=== PATIENT | female | born 1975 | race Caucasian/White ===

== ENCOUNTER 2019-04-06 08:17 | Day surgery (SDC) | payer OTHER ==
[2019-04-06] VITALS (15 sets, daily range): BP systolic 114–148; BP diastolic 48–74; PULSE 64–78; RESP 13–22; Ht 160 cm; Wt 73.3 kg
[~2019-04-06] VITALS: Ht 160 cm; Wt 73.3 kg
[~2019-04-06 08:17] MED LIST: CEPH500C PO; HYDR-3601 NGT; SOD CHLORIDE 0.9% 1,000 ML IV ONE
[2019-04-06] MEDS ORDERED: NEOSTIGMINE 3 MG/3 ML SYRINGE ONE (09:21)
[2019-04-06] MEDS ORDERED: FENTAnyl 50 MCG/ML VIAL ONE (09:21)
[2019-04-06] MEDS ORDERED: CEFAZOLIN 1 GM INJ ONE (09:21)
[2019-04-06] MEDS ORDERED: LIDOCAINE 2% (SDV) 5 ML INJ ONE (09:21)
[2019-04-06] MEDS ORDERED: GLYCOPYRROLATE 0.4 MG INJ ONE (09:21)
[2019-04-06] MEDS ORDERED: PROPOFOL 20 ML ONE (09:21)
[2019-04-06] MEDS ORDERED: MIDAZOLAM 1 MG/ML 2 ML INJ ONE (09:21)
[2019-04-06] MEDS ORDERED: BUPIVACAINE LIPOSOME/PF 266 MG/20 ML VIAL INFIL SCH (09:30)
[2019-04-06] MEDS ORDERED: POLYMYXIN/BACITRACIN 1L IRRIG ONE (10:17)
[2019-04-06] MEDS ORDERED: ONDANSETRON 4 MG INJ ONE (10:23)
[2019-04-06] MEDS ORDERED: DEXAMETHASONE 4 MG/ML 5 ML INJ ONE (10:23)
[2019-04-06] MEDS ORDERED: BUPIVACAINE 0.25% (MPF) 10 ML 10 ML VIAL INJ ONE (10:43)
[2019-04-06] MEDS ORDERED: ALBUTEROL 0.083% (NEB) 2.5 MG/3 ML AMP HHN PRN (11:00)
[2019-04-06] MEDS ORDERED: EPHEDrine 25 MG/5 ML SYG IV PRN (11:00)
[2019-04-06] MEDS ORDERED: TRIMETHOBENZAMIDE 100 MG/ML VIAL IM PRN (11:00)
[2019-04-06] MEDS ORDERED: HYDROmorphONE 1 MG/5 ML IV SYRINGE IV PRN ×3 (11:00)
[2019-04-06] MEDS ORDERED: hydrALAzine 20 MG INJ IV PRN (11:00)
[2019-04-06] MEDS ORDERED: DIPHENHYDRAMINE 50 MG INJ IV PRN (11:00)
[2019-04-06] MEDS ORDERED: ONDANSETRON 4 MG INJ IV PRN ×2 (11:00→12:00)
[2019-04-06] MEDS ORDERED: MEPERIDINE 25 MG INJ IV PRN (11:00)
[2019-04-06] MEDS ORDERED: MIDAZOLAM 1 MG/ML 2 ML INJ IV PRN (11:00)
[2019-04-06] MEDS ORDERED: OXYCODONE/ACETAMINOPHEN (5/325) TAB PO PRN ×2 (11:00)
[2019-04-06] MEDS ORDERED: LABETALOL HCL 20MG INJ IV PRN (11:00)
[2019-04-06] MEDS ORDERED: FENTAnyl 50 MCG/ML VIAL IV PRN ×2 (11:00)
[2019-04-06] MEDS ORDERED: IPRATROPIUM (NEB) 0.5 MG/2.5 ML AMP HHN PRN (11:00)
[2019-04-06] MEDS ORDERED: LACTATED RINGER'S 1,000 ML IV SCH (11:43)
[2019-04-06] MEDS ORDERED: morphine 2 MG INJ IV PRN (12:00)
[2019-04-06] MEDS ORDERED: ACETAMINOPHEN 325 MG TAB PO PRN (12:00)
[2019-04-06] MEDS ORDERED: HYDROCODONE/APAP (5/325) TAB PO PRN (12:00)
[2019-04-06] MEDS: FENTAnyl 50 MCG/ML VIAL IV PRN ×2 (12:02→12:23)
== END 2019-04-06 19:00 | disposition home or self-care (01) ==
LOC: SDS 08:17
PROVIDERS: ATTEND Surgery Plastic and Reconstructive Surgery
DX: Z90.11 Acquired absence of right breast and nipple (principal); Z85.3 Personal history of malignant neoplasm of breast
CPT/HCPCS: 19357; 84703; C9290; J0690; J1100; J2175; J2250; J2405; J3010; Z7512; Z7610; J2710

== ENCOUNTER 2019-04-14 11:34 | Emergency (ER) | payer OTHER ==
[~2019-04-14] VITALS: Ht 162.6 cm; Wt 73.7 kg
[~2019-04-14 11:34] MED LIST changes: -HYDR-3601 NGT; -SOD CHLORIDE 0.9% 1,000 ML IV ONE
[2019-04-14 11:53] VITALS: Ht 162.6 cm; Wt 73.7 kg
[2019-04-14 14:37] VITALS: BP 108/62; PULSE 74; RESP 16
== END 2019-04-14 14:49 | disposition home or self-care (01) ==
LOC: E/R 11:34
DX: M79.605 Pain in left leg (principal); M79.604 Pain in right leg
CPT/HCPCS: 80053; 82550; 83690; 85025; 93970; Z7502